=== PATIENT | male | born 1990 | race Caucasian/White ===

== ENCOUNTER 2019-06-09 19:10 | Emergency (ER) | payer OTHER ==
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
--- NOTE | 2019-06-09 20:31 | CRLCR ---
Indication: Right shoulder pain. Technique: Right shoulder AP, Y-view, axillary, and Grashey 4 views. Comparison: None. Findings: Bones: Alignment is normal. No fractures or bone lesions. Joint spaces: Unremarkable. Joint spaces are preserved. No significant degenerative changes. Soft tissues: Unremarkable. Impression: No findings to explain right shoulder pain. Dictated by Inocencio Gonzalez MD @ 06/09/2019 8:29:07 PM Dictated by: Inocencio Gonzalez MD @ 06/09/2019 20:29:33 (Electronically Signed)
[2019-06-09] MEDS ORDERED: Ketorolac 60 MG/2 ML SDV IM ONE (21:27)
== END 2019-06-09 22:23 | disposition home or self-care (01) ==
LOC: JP.ED 19:10
DX: S43.401A Unspecified sprain of right shoulder joint, initial encounter (principal); Y92.009 Unspecified place in unspecified non-institutional (private) residence as the place of occurrence of the external cause; V86.56XA Driver of dirt bike or motor/cross bike injured in nontraffic accident, initial encounter
CPT/HCPCS: 73030; 96372; 99283; J1885